=== PATIENT | female | born 1950 | race Caucasian/White ===

== ENCOUNTER 2019-12-10 09:52 | Emergency (ER) | payer MEDICARE, OTHER, SELFPAY ==
[2019-12-10 09:53] VITALS: BP 189/107; PULSE 66; RESP 13; TEMP 36.5; O2SAT 97; BMI 35.9
--- NOTE | 2019-12-10 09:57 | ED.VIS.GEN ---
History of Present Illness Chief Complaint: Neuro S/Sx Detail of Chief Complaint: Facial numbness and droop Informant: Patient Onset: Today Context: Sudden Onset Timing: Continuous Quality: Numbness, tingling, facial droop Location: Right side Current Severity: Moderate Maximum Severity: Moderate Worsened by: Nothing Relieved by: Nothing Associated Symptoms: Tearing because unable to close eyelids Narrative: Patient [age]-year-old woman who presents with facial numbness and tingling. She states not able to close her eye completely. She is tearing. She denies trouble with speech or swallowing. She denies any other symptoms. She does complain of a headache which she described as a sensation of a baseball cap on her head. It is not positional. There is no associated visual symptoms i.e. double vision, blurred vision or loss of vision. She denies ringing or ears or ear pain. She denies difficulty swallowing or change in voice. She denies problems with balance or coordination. Prior similar symptoms: Yes - Mittal's palsy Recent Illness/Hospitalization: No - Past Medical History (1) Mittal's palsy Status: Chronic (2) Hypertension Status: Chronic (3) Hypercholesterolemia Status: Chronic (4) Depression Status: Chronic Past Medical History - Allergies and Home Meds Allergies/Adverse Reactions: Allergies No Known Allergies Allergy (Verified 12/10/19 09:53) Primary Care Physician: Rose Vidales MD [Primary Care Provider] - Prior records reviewed: Yes Lives: Spouse/ Significant Other Smoking Status: Never smoker Alcohol: None Drugs: None Review of Systems General: Denies: Chills, Fever, Malaise, Subjective, Sweats Eyes: Denies: Visual changes - bilaterally, Blurred Vision - bilaterally, Diplopia ENT: Denies: Bilateral ear pain, Rhinorrhea, Sore throat Cardiovascular: Denies: Chest pain, Palpitations Respiratory: Denies: Dyspnea, Cough, Dyspnea on exertion Gastrointestinal: Denies: Nausea, Vomiting, Diarrhea Musculoskeletal: Denies: Myalgias, Arthralgias, Neck pain, Back pain, Swelling, Extremity Pain, -, - Skin: Denies: Rash, Wounds Neurological: Reports: Headache, Weakness, Parasthesia, Numbness, - Psych: Reports: Depression Endocrine: Denies: Polyuria, Polydipsia Hematologic: Denies: Easy bruising, Easy bleeding Physical Exam Vital Signs/Narrative: Vital Signs Temp Pulse Resp BP Pulse Ox 12/10/19 09:53 97.7 F L 66 13 189/107 H 97 Inital Vital Signs reviewed: Yes General: Well nourished, Well developed, Obese Head: Normocephalic, Atraumatic, - - She has facial droop on the right side. Unable to close her eyelids. Unable to raise her eyebrows or furl her forehead. There is decreased sensation on the right side compared to left.. Negative for: Trauma, Tenderness Eyes: Perrl, EOMI. Negative for: Pale conjunctiva, Scleral icterus ENT: Moist mucous membranes, No rhinorrhea, TM's clear - There are no lesions in the auditory canal. Neck: Supple, Nontender, No lymphadenopathy, No JVD Cardiovascular: Regular rate, Regular rhythm, No murmurs, Normal S1, Normal S2 Respiratory: No distress, CTA bilaterally, Chest nontender Abdomen: Soft, Nontender, Nondistended, Normal bowel sounds Back: Nontender, Normal Inspection Extremities: Nontender, No edema Skin: Normal color, No rash Neurological: Alert, Oriented x3, Cranial nerves II-XII grossly intact, Normal Strength, Normal Sensation, Normal DTR, Normal Gait, - - Cerebellar testing is normal. NIH is a 2 for facial numbness and facial palsy. Patient's findings are consistent with Mittal's palsy. Psychological: Normal affect, Normal Mood Diagnostic/Tx/Re-eval - Medical Decision Making Was rushed back by triage nurse because of concern for stroke. Patient's history and physical exam is consistent with Mittal's palsy. She was treated with a burst of prednisone. ED Disposition - Plan for ED Patient: Disposition: Home or Assisted Living Diagnosis: Mittal's palsy Instructions: Mittal's Palsy Prescriptions: Prednisone [Deltasone] 40 mg PO DAILY #10 tab Prescription Printed Erythromycin Ophthalmic 1 applic RIGHT EYE TID #1 tube Prescription Printed Referrals: Rose Vidales MD [Primary Care Provider] - 1 Week if not improving Additional Instructions: 1. Instill 1 to 2 drops of artificial tear right eye every 1 hour while awake. 2. Instill fine ribbon of ointment at bedtime and tape right eye shot.
[2019-12-10 10:01] VITALS: BP 161/96; PULSE 61; RESP 16; O2SAT 94; BMI 34.7
[2019-12-10 10:21] VITALS: BP 154/91; RESP 16
--- NOTE | 2019-12-10 10:22 | ED.RN ---
REVIEWED D/C INSTRUCTIONS, FOLLOW UP CARE, PRESCRIPTIONS, AND S/S THAT WOULD WARRANT RETURN TO THE ED WITH PT. PT VERBALIZED AN UNDERSTANDING AND DENIES FURTHER QUESTIONS FOR THIS RN. PT SKIN P/W/D, RESP EVEN AND UNLABORED, NO DISTRESS NOTED. PT AMBULATED OUT OF ED, GAIT STEADY.
== END 2019-12-10 10:23 | disposition home or self-care (01) ==
PROVIDERS: Emergency Provider Emergency Medicine; PCP Internal Medicine
DX: G51.0 Bell's palsy (principal); R51 Headache; I10 Essential (primary) hypertension; E78.00 Pure hypercholesterolemia, unspecified; F32.9 Major depressive disorder, single episode, unspecified; E66.9 Obesity, unspecified; Z79.899 Other long term (current) drug therapy
CPT/HCPCS: 99282

== ENCOUNTER 2022-10-15 21:37 | Emergency (ER) | payer MEDICARE, OTHER, SELFPAY ==
[2022-10-15 21:39] VITALS: BP 127/82; PULSE 88; RESP 17; TEMP 36.9; O2SAT 89; BMI 32.8
[2022-10-15 21:45] VITALS: O2SAT 93
--- NOTE | 2022-10-15 22:10 | EDS_ITS ---
HPI History of Present Illness Chief Complaint: Head Injury Narrative Narrative: Patient is a 9-year-old female with past medical history of hypertension hyperlipidemia and depression. She states that she was walking through her house roughly 1 hour ago after she was sitting down watching TV and her legs just gave out on her and she fell initially hitting her buttocks and then rolling backwards and striking the back of her head on the drywall. She states there was no loss of consciousness and she denies any history of bleeding disorder or blood thinner use. She states since that time there is been no headache change in vision light sensitivity or nausea or vomiting. She reports that a friend is a nurse and came over after the fall and recommended she come to the hospital to be checked out and secondary to this comes in for evaluation. Otherwise she denies any chest pain palpitations or shortness of breath and has no other complaints PFSH PFS Home Medications bupropion HCl 300 mg 24 hr tablet, extended release 300 mg PO DAILY 12/10/19 [History Last Taken Unknown] calcium carbonate-vitamin D3 600 mg-125 unit tablet 1 ea PO DAILY 12/10/19 [History Last Taken Unknown] cholecalciferol (vitamin D3) 25 mcg (1,000 unit) tablet 1,000 unit PO DAILY 12/10/19 [History Last Taken Unknown] donepezil 10 mg tablet 10 mg PO QHS 12/10/19 [History Last Taken Unknown] erythromycin 5 mg/gram (0.5 %) eye ointment 1 applic RIGHT EYE TID #1 tube 12/10/19 [Rx Last Taken Unknown] hydrochlorothiazide 12.5 mg capsule 12.5 mg PO DAILY 12/10/19 [History Last Taken Unknown] losartan 50 mg tablet 50 mg PO DAILY 12/10/19 [History Last Taken Unknown] lysine 500 mg tablet 500 mg PO DAILY 12/10/19 [History Last Taken Unknown] metoprolol succinate 25 mg tablet,extended release 24 hr 25 mg PO DAILY 12/10/19 [History Last Taken Unknown] multivitamin with minerals 1 ea PO DAILY 12/10/19 [History Last Taken Unknown] omeprazole 20 mg capsule,delayed release 20 mg PO DAILY 12/10/19 [History Last Taken Unknown] potassium chloride 20 mEq oral packet 20 meq PO DAILY 12/10/19 [History Last Taken Unknown] pravastatin 40 mg tablet 40 mg PO QHS 03/03/20 [History Last Taken Unknown] prednisone 20 mg tablet 40 mg PO DAILY #10 tabs 12/10/19 [Rx Last Taken Unknown] Allergy/AdvReac Type Severity Reaction Status Date / Time No Known Allergies Allergy Verified 10/15/22 21:39 Social History Smoking Status: Never smoker ROS ROS ED Constitutional Constitutional ED: Denies chills or fever(s) Eyes Eyes: Denies change in vision ENT ENT ED: Denies sore throat Cardiovascular Cardiovascular: Reports other Details: Negative syncope ; Denies chest pain or palpitations Respiratory/Chest Respiratory/Chest: Denies cough or dyspnea Gastrointestinal Gastrointestinal: Denies abdominal pain, diarrhea, nausea or vomiting Genitourinary Genitourinary ED: Denies dysuria Musculoskeletal Musculoskeletal: Denies back pain, myalgias or neck pain Integumentary Denies rash Neurologic Neurologic: Denies headache(s) or paresthesias Hematologic/Lymphatic Hematologic/Lymphatic: Denies easy bleeding or easy bruising EXAM Physical Exam Const Vital Signs: 10/15/22 21:39 10/15/22 21:45 10/15/22 21:46 Temperature 98.5 F Temperature Source Temporal Pulse Rate 88 Respiratory Rate 17 Respiratory Effort Normal Respiratory Pattern Normal Blood Pressure 127/82 H Blood Pressure Mean 97 Pulse Ox 89 93 Oxygen Delivery Method Room Air Nasal Cannula Oxygen Flow Rate (L/min) 2 Positive well nourished and well developed General Appearance ED: well developed HEENT Reports dry mucous membranes HEENT Narrative: No signs of depressed or basilar skull fracture no scalp hematoma noted Mouth ED: Yes dry mucous membranes Mouth: dry mucous membranes Eyes PERRL and EOMs intact bilaterally Neck supple Neck Narrative: No bony deformity or step-off of the cervical spine no midline pain with palpation Chest Wall palpation of chest normal Resp normal respiratory effort and clear to auscultation bilaterally Cardio regular rate and regular rhythm GI normal to inspection, nondistended, normoactive bowel sounds, non-tender and non-distended Auscultation: normoactive bowel sounds Palpation: soft Back/Spine Back/Spine Narrative: No bony deformity or step-off of the thoracic or lumbar spine no midline pain with palpation Extremity normal to inspection Extremity Narrative: Pelvis is stable there is no shortening or external rotation of either lower extremity. Patient can lift both arms and legs without difficulty Neuro oriented x3 and CN's II-XII intact bilaterally Sensorium / Orientation: alert Psych mental status grossly normal Skin no rashes or lesions noted Skin Narrative: No abrasions or ecchymosis noted Skin turgor is increased MDM MDM MDM Narrative Medical decision making narrative: Patient presented to the ER awake and alert without headache light sensitivity change in vision nausea or vomiting. She reported a mechanical fall and the fact that her legs gave out and she does not have any type of palpitations or syncope prior to the event. Her head trauma is low mechanism of injury she does not have a scalp hematoma and she is not on blood thinners or has a history of bleeding disorder. Therefore I felt there is no need for a head CT. Patient and family were informed of my reasoning and they agree with this about foregoing head CT. Family had concern for dehydration and physical exam does suggest this so basic labs were obtained. Her creatinine is slightly elevated at 1.09 but the remainder of her labs revealed no clinically significant findings. Patient was given 1 L of fluid to help replace this and afterwards was able to ambulate in the ER with a steady gait and is therefore safe for discharge. Lab Data Attestation: I reviewed the patient's lab results. Labs: Laboratory Results - last 24 hr 10/15/22 10/15/22 21:23 21:23 WBC 10.9 RBC 4.09 L Hgb 12.5 Hct 37.7 MCV 92.2 MCH 30.6 MCHC 33.2 RDW Std Deviation 44.8 H RDW Coeff of Marcio 13.2 Plt Count 373 MPV 9.9 Immature Gran % (Auto) 0.400 Neut % (Auto) 63.5 Lymph % (Auto) 29.4 [place] % (Auto) 5.8 Eos % (Auto) 0.7 Baso % (Auto) 0.2 Absolute Neuts (auto) 7.0 Absolute Lymphs (auto) 3.22 Nucleated RBC % 0 Sodium 137 Potassium 3.7 Chloride 100 Carbon Dioxide 29.0 Anion Gap 8 BUN 13 Creatinine 1.09 H Estim Creat Clear Calc 37.98 Est GFR (MDRD) Af Amer 64 Est GFR (MDRD) Non-Af 53 L BUN/Creatinine Ratio 11.9 Glucose 117 H Calcium 9.4 Magnesium 1.9 Discharge Plan Triage Chief Complaint: Head Injury ED Provider: Sanjay Rivera Dx/Rx/DC Orders Clinical Impression: Closed head injury, Dehydration, mild, Accidental fall Instructions: ED Dehydration (Adult), ED Head Injury (Adult) Prescriptions: No Action losartan 50 MG tablet 50 mg PO DAILY pravastatin 40 MG tablet 40 mg PO QHS donepezil 10 MG tablet 10 mg PO QHS potassium chloride 20 MEQ packet 20 meq PO DAILY hydrochlorothiazide 12.5 MG capsule 12.5 mg PO DAILY omeprazole 20 MG capsule 20 mg PO DAILY metoprolol succinate 25 MG tablet extended release 24 hr 25 mg PO DAILY multivitamin with minerals 1 EACH tablet 1 ea PO DAILY lysine 500 MG tablet 500 mg PO DAILY bupropion HCl 300 MG tablet extended release 24 hr 300 mg PO DAILY calcium carbonate-vitamin D3 1 EACH tablet 1 ea PO DAILY cholecalciferol (vitamin D3) 1,000 UNIT tablet 1,000 unit PO DAILY erythromycin 1 GM ointment 1 applic RIGHT EYE TID Qty: 1 0RF Rx Instructions: prednisone 20 MG tablet 40 mg PO DAILY Qty: 10 0RF Rx Instructions: With food Primary Care Provider: Rose Vidales Referrals: Rose Vidales MD [Primary Care Provider] - Activity Restrictions/Additional Instructions: Please keep yourself well-hydrated continue all your medications as previously directed and return to the ER should you have any further concerns Disposition Disposition: Home, Self Care
[2022-10-15 22:24] LABS: Absolute Lymphocyte Count 3.22 X10^3/uL (0.83-4.51); Basophil# 0.02 X10^3/uL; Basophil% 0.2 % (0-1); Eosinophil# 0.08 X10^3/uL; Eosinophils% 0.7 % (0-5); Hematocrit 37.7 % (37-47); Hemoglobin 12.5 g/dL (12.0-15.0); Lymphocyte # 3.22 X10^3/ul (0.83-4.51); Lymphocyte % 29.4 % (19-41); Mean Corp Hgb Conc 33.2 g/dL (32-36); Mean Corpuscular Hgb 30.6 pg (27.0-32.0); Mean Corpuscular Volume 92.2 fL (81-99); Mean Platelet Vol. 9.9 fl (6.2-12.0); Monocyte# 0.63 X10^3/uL; Monocyte% 5.8 % (0-10); NRBC Flagged by Analyzer 0 % (0-5); Neutrophil # 6.95 X10^3/uL (2.7-7.7); Neutrophil % 63.5 % (47-70); Platelet Count 373 K/mm3 (150-450); RBC Distribution Width CV 13.2 % (11.6-14.6); RBC Distribution Width SD 44.8 fl (35.1-43.9); Red Blood Count 4.09 M/mm3 (4.2-5.4); White Blood Count 10.9 K/mm3 (4.4-11.0)
[2022-10-15] MEDS: 0.9% Normal Saline 1,000 ML 999 ML IV (22:25)
[2022-10-15 22:45] LABS: Anion Gap 8 (5-15); BUN 13 mg/dL (7-18); BUN/Creat Ratio 11.9 RATIO (10-20); Calcium,Total 9.4 mg/dL (8.5-10.1); Chloride 100 mmol/L (98-107); Creatinine, Serum 1.09 mg/dL (0.55-1.02); EST Glomerular Filtration Rate 53 mL/min (>60); Est Glom Filt Rate - Afr Amer 64 mL/min (>60); Estimated Creatinine Clearance 37.98 ml/min; Glucose 117 mg/dL (74-106); Magnesium 1.9 mg/dL (1.6-2.6); Potassium 3.7 mmol/L (3.5-5.1); Sodium Level 137 mmol/L (136-145)
[2022-10-16 00:07] VITALS: BP 118/83; PULSE 76; RESP 16; O2SAT 98
== END 2022-10-16 00:08 | disposition home or self-care (01) ==
PROVIDERS: Emergency Provider Emergency Medicine; PCP Internal Medicine; Visit Provider Emergency Medicine
DX: S00.03XA Contusion of scalp, initial encounter (principal); W01.198A Fall on same level from slipping, tripping and stumbling with subsequent striking against other object, initial encounter; Y93.01 Activity, walking, marching and hiking; Y92.019 Unspecified place in single-family (private) house as the place of occurrence of the external cause; E86.0 Dehydration; I10 Essential (primary) hypertension; E78.5 Hyperlipidemia, unspecified; F32.A Depression, unspecified; Z79.899 Other long term (current) drug therapy; Z79.52 Long term (current) use of systemic steroids
CPT/HCPCS: 80048; 83735; 85025; 96360; 96361; 99285; J7030

== ENCOUNTER → 2023-08-23 | Outpatient (CLI) | payer MEDICARE, OTHER, SELFPAY ==
[2023-08-23 17:35] LABS: Absolute Lymphocyte Count 2.58 X10^3/uL (0.83-4.51); Absolute Neutrophil Count 4.1 X10^3/uL (2.0-7.7); Basophil# 0.02 X10^3/uL; Basophil% 0.3 % (0-1); Eosinophil# 0.12 X10^3/uL; Eosinophils% 1.6 % (0-5); Hematocrit 37.5 % (37-47); Lymphocyte # 2.58 X10^3/ul (0.83-4.51); Lymphocyte % 34.9 % (19-41); Mean Corpuscular Hgb 30.7 pg (27.0-32.0); Mean Corpuscular Volume 95.9 fL (81-99); Mean Platelet Vol. 9.8 fl (6.2-12.0); Monocyte# 0.55 X10^3/uL; Monocyte% 7.4 % (0-10); NRBC Flagged by Analyzer 0 % (0-5); Neutrophil # 4.11 X10^3/uL (2.7-7.7); Neutrophil % 55.5 % (47-70); Platelet Count 347 K/mm3 (150-450); RBC Distribution Width CV 13.2 % (11.6-14.6); RBC Distribution Width SD 46.6 fl (35.1-43.9); Red Blood Count 3.91 M/mm3 (4.2-5.4); White Blood Count 7.4 K/mm3 (4.4-11.0)
[2023-08-23 18:05] LABS: Color, Urine Yellow (Yellow); Glucose, Dipstick Normal (Normal); Ketone-Dipstick 50 mg/dl (Negative); Leukocyte Esterase-Dipstick 100 /ul (Negative); Nitrite-Dipstick Negative (Negative); Occult Blood-Urine Negative /ul (Negative); Protein-Dipstick Negative (Negative); Specific Gravity, Urine 1.015 (1.002-1.030); Urine Bilirubin Dipstick Negative (Negative); Urine Clarity Clear (Clear); Urine Urobilinogen Normal (Normal)
[2023-08-23 18:21] LABS: ALB/GLOB Ratio 1.2 RATIO (0.9-2.4); AST(SGOT) 17 U/L (15-37); Alanine Aminotransfer ALT/SGPT 15 U/L (13-56); Albumin, Serum 3.9 g/dL (3.2-5.0); Alkaline Phosphatase 53 U/L (45-117); Anion Gap 9 (5-15); BUN 17 mg/dL (7-18); BUN/Creat Ratio 19.3 RATIO (10-20); Calcium,Total 9.2 mg/dL (8.5-10.1); Chloride 105 mmol/L (98-107); Creatinine, Serum 0.88 mg/dL (0.55-1.02); EST Glomerular Filtration Rate 67 mL/min (>60); Est Glom Filt Rate - Afr Amer 81 mL/min (>60); Globulin 3.3 g/dL (2.2-4.2); Glucose 80 mg/dL (74-106); Potassium 3.5 mmol/L (3.5-5.1); Protein, Total 7.2 g/dL (6.4-8.2); Sodium Level 140 mmol/L (136-145)
[2023-08-28 12:08] LABS: Anti-Nuclear Antibody Test Positive (.); Anti-dsDNA Ab <1 IU/mL (0-9)
== END | disposition home or self-care (01) ==
LOC: MTLAB 15:14
PROVIDERS: PCP Internal Medicine; Referring Provider Dermatology; Visit Provider Dermatology
DX: C44.91 Basal cell carcinoma of skin, unspecified (principal); L57.8 Other skin changes due to chronic exposure to nonionizing radiation; L30.8 Other specified dermatitis; X32.XXXA Exposure to sunlight, initial encounter
CPT/HCPCS: 36415; 80053; 81001; 81002; 85025; 86038; 86225

== ENCOUNTER 2024-07-22 14:14 | Emergency (ER) | payer MEDICARE, OTHER, SELFPAY ==
[2024-07-22 14:14] VITALS: BP 179/102; PULSE 64; RESP 16; O2SAT 96
[2024-07-22 14:17] VITALS: TEMP 36.3; O2SAT 99; BMI 30.1
--- NOTE | 2024-07-22 14:21 | RAD_ITS ---
STUDY: X-RAY - PELVIS REASON FOR EXAM: Female, 74 years old. Headache after fall TECHNIQUE: One view of the pelvis was obtained. COMPARISON: None. FINDINGS: There is a non-specific bowel gas pattern. Normal visualized soft tissue structures. There is diffuse demineralization of the osseous structures. There is narrowing with cortical sclerosis and osteophyte formation of the sacroiliac joint consistent with degenerative osteoarthritic changes. Normal visualized bilateral superior and inferior pubic rami. Normal pubic symphysis. Normal ischial tuberosities. Normal visualized right femoral head. Normal right acetabulum. There is mild articular joint space narrowing of the right hip. Normal visualized left femoral head. Normal left acetabulum. There is mild articular joint space narrowing of the left hip. RAD/Pelvis 1 or 2 Views IMPRESSION: Age consistent degenerative changes, no acute findings. However, hip and pelvic fractures in patients of this age can be subtle, if there is strong clinical suspicion of a fracture, recommend further evaluation with CT Electronically Signed: Fazal Mueller MD at 15:33 EDT ,
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
[2024-07-22] MEDS: Ondansetron 4 MG/2 ML Vial IV (14:27)
[2024-07-22] MEDS: Lidocaine 1% /Epi 1:100 (20ml) 20 ML Vial 5 ML INFILT (14:28)
--- NOTE | 2024-07-22 14:45 | CT_ITS ---
STUDY: CT BRAIN WITHOUT CONTRAST REASON FOR EXAM: Female, 74 years old. Acute pain after trauma RADIATION DOSAGE (If Supplied By Facility): CTDIvol = ( 44.99 ) mGy, DLP = ( 796.11 ) mGycm TECHNIQUE: Transaxial CT imaging of the brain was performed without administration of intravenous contrast material. Individualized dose optimization techniques were used for this CT. COMPARISON: No relevant priors. FINDINGS: There is an acute, nondisplaced left occipital skull fracture with associated soft tissue swelling and subcutaneous emphysema. There are multiple areas of hyperdensity in the brain consistent with acute hemorrhages. There is a 0.9 cm left subdural hematoma along the left temporal/parietal region, there is a right temporal lobe subdural hematoma measuring 5 mm, there is also evidence of hemorrhage within the right sylvian fissure and a contrecoup 1.1 cm parenchymal hematoma in the right frontal lobe which is opposite the skull fracture. There are age consistent atrophic periventricular deep white matter changes, Normal visualized paranasal sinuses. CT/Brain/Head without Contrast IMPRESSION: Nondisplaced left occipital skull fracture with associated soft tissue swelling and subcutaneous emphysema There are acute subdural hematomas along the left temporal/parietal region, right temporal region and right frontal lobe. Thicknesses are 0.9 cm on the left side, 0.5 cm on the right temporal hematoma and 0.3 cm in the right frontal There is a 1.1 cm parenchymal hemorrhage contracoup to the skull fracture At the time of this scan there is no significant edema, midline shift or mass effect ventricles and basilar cisterns are of normal caliber for age. Age consistent senescent changes. N.B. : The above Results were Read Back by Fazal Mueller MD to Jim Johnston MD, and understanding confirmed on 07/22/2024 15:03:23 (ET). Electronically Signed: Fazal Mueller MD at 15:06 EDT ,
--- NOTE | 2024-07-22 14:45 | RAD_ITS ---
STUDY: X-RAY CHEST REASON FOR EXAM: Female, 74 years old. Chest pain after fall TECHNIQUE: Single AP portable view of the chest. COMPARISON: None. FINDINGS: EKG leads overlie the chest The lungs are clear and expanded. There is no demonstrated pleural abnormality. Normal size heart. There is mediastinal widening likely due to a tortuous ascending aorta but there are also subtle air bronchograms noted in this opacification and this could represent atelectasis. There are no previous studies available for comparison. Normal visualized pulmonary arteries. Normal visualized aortic arch and descending thoracic aorta. Normal visualized thoracic spine. Normal visualized ribs, clavicles, and shoulders. There is no demonstrated abnormality of the visualized soft tissue structures of the upper abdomen. RAD/Chest 1 View IMPRESSION: No acute pulmonary process Widening of the superior mediastinum likely due to a tortuous ectatic aorta but atelectatic changes along the right suprahilar and perihilar region cannot be excluded Electronically Signed: Fazal Mueller MD at 15:35 EDT ,
--- NOTE | 2024-07-22 14:45 | CT_ITS ---
STUDY: CT CERVICAL SPINE WITHOUT CONTRAST REASON FOR EXAM: Female, 74 years old. Headache and neck pain after trauma RADIATION DOSAGE (If Supplied By Facility): CTDIvol = ( 23.88 ) mGy, DLP = ( 481.51 ) mGycm TECHNIQUE: High resolution transaxial imaging was performed without contrast material. Sagittal and coronal images were reconstructed. Individualized dose optimization techniques were used for this CT. COMPARISON: None FINDINGS: Normal craniovertebral junction. Normal anterior atlantoaxial articulation. Normal odontoid process. There is a left occipital skull fracture with fluid noted in the mastoid air cells and associated soft tissue swelling and subcutaneous emphysema. There is straightening of the normal cervical lordosis. Normal vertebral bodies and posterior osseous elements. C2-3: Normal endplates. Normal disc height and morphology. Normal central canal and intervertebral neuroforamina. C3-4: Normal endplates. Normal disc height and morphology. Normal central canal and intervertebral neuroforamina. C4-5: Normal endplates. Normal disc height and morphology. Normal central canal and intervertebral neuroforamina. C5-6: Disc space narrowing with uncovertebral spurs. No central canal narrowing, mild left foraminal narrowing due to facet joint hypertrophy. The right foramen is widely patent C6-7: Normal endplates. Disc space narrowing.. Normal central canal and intervertebral neuroforamina. C7-T1: Normal endplates. Disc space narrowing.. Normal central canal and intervertebral neuroforamina. Normal visualized soft tissue structures. CT/Spine Cervical without Contras IMPRESSION: Age consistent degenerative changes in the cervical spine without acute fracture or suspicious osseous lesion Left occipital skull fracture with associated soft tissue swelling and subcutaneous emphysema there is also evidence of fluid within the left mastoid air cells Electronically Signed: Fzaal Mueller MD at 15:45 EDT ,
[2024-07-22 14:51] LABS: Absolute Lymphocyte Count 3.96 X10^3/uL (0.83-4.51); Absolute Neutrophil Count 4.4 X10^3/uL (2.0-7.7); Basophil# 0.03 X10^3/uL; Basophil% 0.3 % (0-1); Eosinophil# 0.15 X10^3/uL; Eosinophils% 1.6 % (0-5); Hematocrit 35.8 % (37-47); Hemoglobin 11.6 g/dL (12.0-15.0); Lymphocyte # 3.96 X10^3/ul (0.83-4.51); Lymphocyte % 43.5 % (19-41); Mean Corp Hgb Conc 32.4 g/dL (32-36); Mean Corpuscular Hgb 30.2 pg (27.0-32.0); Mean Corpuscular Volume 93.2 fL (81-99); Mean Platelet Vol. 9.4 fl (6.2-12.0); Monocyte# 0.52 X10^3/uL; Monocyte% 5.7 % (0-10); NRBC Flagged by Analyzer 0 % (0-5); Neutrophil % 48.5 % (47-70); Platelet Count 353 K/mm3 (150-450); RBC Distribution Width CV 13.2 % (11.6-14.6); RBC Distribution Width SD 45.3 fl (35.1-43.9); Red Blood Count 3.84 M/mm3 (4.2-5.4); White Blood Count 9.1 K/mm3 (4.4-11.0)
[2024-07-22 14:57] LABS: International Normalized Ratio 1.1; Prothrombin Time (Protime)PT. 13.7 SECONDS (11.7-14.9)
[2024-07-22 14:58] LABS: Partial Thromboplast Time 25.3 Seconds (24.1-36.2)
[2024-07-22 15:08] LABS: Anion Gap 9 (5-15); BUN 23 mg/dL (7-18); BUN/Creat Ratio 24.6 RATIO (10-20); Calcium,Total 9.3 mg/dL (8.5-10.1); Chloride 106 mmol/L (98-107); Creatinine, Serum 0.94 mg/dL (0.55-1.02); EST Glomerular Filtration Rate 63 mL/min (>60); Est Glom Filt Rate - Afr Amer 76 mL/min (>60); Estimated Creatinine Clearance 51.22 ml/min; Glucose 144 mg/dL (74-106); Potassium 3.2 mmol/L (3.5-5.1); Sodium Level 139 mmol/L (136-145)
[2024-07-22] MEDS: Metoclopramide 10 MG/2 ML Vial 2.5 MG IV (15:17)
[2024-07-22 16:14] VITALS: BP 178/93; PULSE 48; RESP 16; O2SAT 98
[2024-07-22 16:23] VITALS: BP 176/93; PULSE 49; RESP 16; O2SAT 98; BMI 30.1
[2024-07-22 16:31] VITALS: BP 178/93; PULSE 48; RESP 16; TEMP 36.5; O2SAT 98
== END 2024-07-22 16:40 | disposition short-term general hospital (02) ==
PROVIDERS: Emergency Provider Emergency Medicine; PCP Internal Medicine; Referring Provider Emergency Medicine; Visit Provider Emergency Medicine
DX: S06.5X9A Traumatic subdural hemorrhage with loss of consciousness of unspecified duration, initial encounter (principal); S06.349A Traumatic hemorrhage of right cerebrum with loss of consciousness of unspecified duration, initial encounter; S06.359A Traumatic hemorrhage of left cerebrum with loss of consciousness of unspecified duration, initial encounter; S01.01XA Laceration without foreign body of scalp, initial encounter; W10.8XXA Fall (on) (from) other stairs and steps, initial encounter; Y93.89 Activity, other specified; Y99.8 Other external cause status
CPT/HCPCS: 12002; 70450; 71045; 72125; 72170; 80048; 85025; 85610; 85730; 96374; 96375; 99284; A4216; J2405

== ENCOUNTER 2024-09-04 16:07 | Emergency (ER) | payer MEDICARE, OTHER, SELFPAY ==
[2024-09-04 16:08] VITALS: BP 162/100; PULSE 102; RESP 16; TEMP 37.1; O2SAT 98; BMI 28.9
--- NOTE | 2024-09-04 16:31 | EX.ED.DYSGE1 ---
HPI History of Present Illness Chief Complaint: Nausea/Vomiting Informant: patient and spouse/S.O. Narrative Narrative: Sent over from [facility]. Presents with significant other increasing nausea with vomiting today. No hematemesis. Intermittent nausea for last 2 weeks. 6 weeks ago was in the ED mechanical fall nondepressed cold fractures with subdural hematoma. She was life flighted to [facility] Per spouse was in the ICU for 3 days, no surgical intervention. She has albertina for scalp laceration. She is kept on the medical floor due to hyponatremia with a sodium of 120 she was discharged with a sodium of 127. Her blood pressure medicines were adjusted including removing her hydrochlorothiazide. 10 days ago saw her PCP as she is on sodium tabs reported her sodium is 140. She she was told to stop the sodium tab and restarted the hydrochlorothiazide. Reports pain a lot more because she is drinking a lot more. Denies any abdominal pain or any pain anywhere. No headaches. [facility] Medical History (Updated 09/04/24 @ 18:[address] Imtiaz Edge DO) Hx of fracture of skull Brain bleed Home Medications ?Medication ?Instructions ?Recorded ?Last Taken ?Type bupropion HCl 300 mg 24 hr tablet, 300 mg PO DAILY 12/10/19 Unknown History extended release calcium carbonate-vitamin D3 600 1 ea PO DAILY 12/10/19 Unknown History mg-125 unit tablet cholecalciferol (vitamin D3) 25 1,000 unit PO DAILY 12/10/19 Unknown History mcg (1,000 unit) tablet donepezil 10 mg tablet 10 mg PO QHS 12/10/19 Unknown History hydrochlorothiazide 12.5 mg capsule 12.5 mg PO DAILY 12/10/19 07/22/24 History losartan 50 mg tablet 50 mg PO DAILY 12/10/19 07/22/24 History lysine 500 mg tablet 500 mg PO DAILY 12/10/19 07/22/24 History metoprolol succinate 25 mg 25 mg PO DAILY 12/10/19 07/22/24 History tablet,extended release 24 hr multivitamin with minerals 1 ea PO DAILY 12/10/19 Unknown History omeprazole 20 mg capsule,delayed 20 mg PO DAILY 12/10/19 07/22/24 History release pravastatin 40 mg tablet 40 mg PO QHS 12/10/19 07/22/24 History fluoxetine 20 mg capsule 20 mg PO DAILY 07/22/24 07/22/24 History potassium chloride 20 mEq 20 meq PO DAILY 07/22/24 07/22/24 History tablet,extended release(part/cryst) trazodone 50 mg tablet 50 mg PO QHS 07/22/24 07/21/24 History nitrofurantoin 100 mg PO Q12 #10 CAPSULES 09/04/24 Unknown Rx monohydrate/macrocrystals 100 mg capsule ondansetron 4 mg disintegrating 4 mg PO Q8H PRN PRN Nausea #10 tabs 09/04/24 Unknown Rx tablet Allergy/AdvReac Type Severity Reaction Status Date / Time No Known Allergies Allergy Verified 09/04/24 16:08 Social History Smoking Status: Never smoker ROS ROS ED Constitutional Constitutional ED: Denies chills, fever(s) or sweats Eyes Eyes: Denies change in vision ENT ENT ED: Denies dysphagia or sore throat Cardiovascular Cardiovascular: Denies chest pain, leg edema, palpitations or racing heartbeat Respiratory/Chest Respiratory/Chest: Denies cough, dyspnea or dyspnea on exertion Gastrointestinal Gastrointestinal: Reports nausea and vomiting; Denies abdominal pain or diarrhea Genitourinary Genitourinary ED: Denies dysuria, hematuria or urinary frequency Musculoskeletal Musculoskeletal: Denies back pain, extremity pain or neck pain Integumentary Denies rash or wounds Neurologic Neurologic: Denies headache(s), paresthesias or weakness EXAM Physical Exam Const Vital Signs: 09/04/24 16:08 09/04/24 18:30 09/04/24 18:59 Temperature 98.7 F 98.6 F Temperature Source Oral Pulse Rate 102 H 72 72 Respiratory Rate 16 18 18 Blood Pressure 162/100 H 131/76 H 135/87 H Blood Pressure Mean 120 94 103 Pulse Ox 98 97 97 Oxygen Delivery Method Room Air Room Air Positive well nourished and well developed Constitutional Narrative: Nontoxic General Appearance ED: well developed and NAD HEENT HEENT Narrative: Mild dryness to the tongue normocephalic and atraumatic Eyes EOMs intact bilaterally and conjunctivae normal General Eye ED: Yes normal appearance of both eyes Neck no lymphadenopathy and supple General: Negative for tenderness Chest Wall Chest: Negative for tenderness Resp normal respiratory effort and normal air movement Effort and Inspection: symmetric chest movement; Negative for respiratory distress Cardio regular rate, regular rhythm and no murmurs Peripheral Pulses: pulses 2+ throughout GI normal to inspection, nondistended, normoactive bowel sounds and non-tender GI Narrative: Negative Bell's or McBurney's tenderness. Palpation: Negative for guarding or rebound tenderness present Back/Spine no CVA tenderness and no thoracic nor lumbar tenderness Extremity normal to inspection General Extremety ED: Negative for edema or tenderness General Extremity: Negative for edema Neuro oriented x3, CN's II-XII intact bilaterally and no sensory deficits noted Sensorium / Orientation: awake and alert Skin no rashes or lesions noted and no wounds MDM MDM MDM Narrative Medical decision making narrative: Interventions / MDM: Differential diagnosis: Urinary tract infection, nausea and vomiting no clinical bowel obstruction. Diagnosis considered but do not suspect: Electrolyte abnormalities however labs were normal. My EKG interpretation: N/A Imaging independently reviewed and interpreted by myself: N/A External documents reviewed: N/A Test considered but not ordered:N/A ED course: Alert and orient x 3, mild tremulous membranes. History of hyponatremia with increasing nausea and vomiting. Will check labs IV fluids Zofran ordered. With increasing urine frequency will check UA. 1850: Sodium normal at 137. Urine with signs of infection. Normal white count. Normal creatinine. Reevaluations tolerating oral fluids. Started on Macrobid. Meds to bed with antibiotics and antiemetics. Outpatient follow-up. Return precautions. All questions were answered. Re-evaluation: stable Disposition discussed with patient/family/significant other: Patient and significant other Case discussed with consulting clinician: N/A This note was generated with [employer] dictation software. It may contain incorrect words, spelling, and punctuation that were not noted in checking the note before signing. Lab Data Attestation: I reviewed the patient's lab results. Labs: Laboratory Results - last 24 hr 09/04/24 09/04/24 16:33 17:31 WBC 6.3 RBC 3.94 L Hgb 12.0 Hct 37.0 MCV 93.9 MCH 30.5 MCHC 32.4 RDW Std Deviation 46.8 H RDW Coeff of Marcio 13.6 Plt Count 434 MPV 8.9 Immature Gran % (Auto) 0.200 Neut % (Auto) 49.4 Lymph % (Auto) 37.7 [place] % (Auto) 9.4 Eos % (Auto) 2.7 Baso % (Auto) 0.6 Absolute Neuts (auto) 3.1 Absolute Lymphs (auto) 2.36 Nucleated RBC % 0 Sodium 138 Potassium 3.5 Chloride 105 Carbon Dioxide 26.0 Anion Gap 6 BUN 13 Creatinine 0.71 Estim Creat Clear Calc 58.93 Est GFR (MDRD) Af Amer 104 Est GFR (MDRD) Non-Af 86 BUN/Creatinine Ratio 18.3 Glucose 92 Calcium 9.5 Urine Color Yellow Urine Clarity Sl. Cloudy Urine pH 8.0 Ur Specific [place] 1.015 Urine Protein Negative Urine Glucose (UA) Normal Urine Ketones Negative Urine Occult Blood 25 H Urine Nitrite Negative Urine Bilirubin Negative Urine Urobilinogen Normal Ur Leukocyte Esterase 500 H Urine RBC 0-5 SEEN Urine WBC 10-25 SEEN Ur Squamous Epith Cells 0-5 SEEN Ur Transition Epith Cell 0-5 SEEN Ur Renal Epithelial Cell 0-5 SEEN Urine Bacteria 0 SEEN Urine Mucus 0 SEEN Discharge Plan Triage Chief Complaint: Nausea/Vomiting ED Provider: Imtiaz Edge Dx/Rx/DC Orders Clinical Impression: Nausea & vomiting, Acute UTI Instructions: Urinary Tract Infections in Women, ED Vomiting (Adult) Prescriptions: New ondansetron 4 mg tablet,disintegrating 4 mg PO Q8H PRN PRN (Reason: Nausea) Qty: 10 0RF nitrofurantoin monohyd/m-cryst 100 mg capsule 100 mg PO Q12 Qty: 10 0RF No Action losartan 50 MG tablet 50 mg PO DAILY pravastatin 40 MG tablet 40 mg PO QHS donepezil 10 MG tablet 10 mg PO QHS hydrochlorothiazide 12.5 MG capsule 12.5 mg PO DAILY omeprazole 20 MG capsule 20 mg PO DAILY metoprolol succinate 25 MG tablet extended release 24 hr 25 mg PO DAILY multivitamin with minerals 1 EACH tablet 1 ea PO DAILY lysine 500 MG tablet 500 mg PO DAILY bupropion HCl 300 MG tablet extended release 24 hr 300 mg PO DAILY calcium carbonate-vitamin D3 1 EACH tablet 1 ea PO DAILY cholecalciferol (vitamin D3) 1,000 UNIT tablet 1,000 unit PO DAILY trazodone 50 mg tablet 50 mg PO QHS potassium chloride 20 mEq tablet,ER particles/crystals 20 meq PO DAILY fluoxetine 20 mg capsule 20 mg PO DAILY Primary Care Provider: Rose Vidales Referrals: Rose Vidales MD [Primary Care Provider] - 5-7 Days Activity Restrictions/Additional Instructions: Labs normal sodium today 137. Urine with signs of infection. Normal kidney function normal white count. Take and finish antibiotic as prescribed. Use nausea medicine as needed. Continue oral fluids. Follow-up your doctor. If You develop worsening symptoms, return to ED for reevaluation. Print Language: Hungarian Disposition Disposition: Home, Self Care Discharge Date/Time: 09/04/24 19:12
[2024-09-04] MEDS: Ondansetron 4 MG/2 ML Vial IV (16:38)
[2024-09-04] MEDS: 0.9% Normal Saline (1000mL) 1,000 ML 1000 ML IV (16:38)
[2024-09-04 16:45] LABS: Absolute Lymphocyte Count 2.36 X10^3/uL (0.83-4.51); Absolute Neutrophil Count 3.1 X10^3/uL (2.0-7.7); Basophil# 0.04 X10^3/uL; Basophil% 0.6 % (0-1); Eosinophil# 0.17 X10^3/uL; Eosinophils% 2.7 % (0-5); Lymphocyte # 2.36 X10^3/ul (0.83-4.51); Lymphocyte % 37.7 % (19-41); Mean Corp Hgb Conc 32.4 g/dL (32-36); Mean Corpuscular Hgb 30.5 pg (27.0-32.0); Mean Corpuscular Volume 93.9 fL (81-99); Mean Platelet Vol. 8.9 fl (6.2-12.0); Monocyte# 0.59 X10^3/uL; Monocyte% 9.4 % (0-10); NRBC Flagged by Analyzer 0 % (0-5); Neutrophil # 3.09 X10^3/uL (2.7-7.7); Neutrophil % 49.4 % (47-70); Platelet Count 434 K/mm3 (150-450); RBC Distribution Width CV 13.6 % (11.6-14.6); RBC Distribution Width SD 46.8 fl (35.1-43.9); Red Blood Count 3.94 M/mm3 (4.2-5.4); White Blood Count 6.3 K/mm3 (4.4-11.0)
[2024-09-04 17:26] LABS: Anion Gap 6 (5-15); BUN 13 mg/dL (7-18); BUN/Creat Ratio 18.3 RATIO (10-20); Calcium,Total 9.5 mg/dL (8.5-10.1); Chloride 105 mmol/L (98-107); Creatinine, Serum 0.71 mg/dL (0.55-1.02); EST Glomerular Filtration Rate 86 mL/min (>60); Est Glom Filt Rate - Afr Amer 104 mL/min (>60); Estimated Creatinine Clearance 58.93 ml/min; Glucose 92 mg/dL (74-106); Potassium 3.5 mmol/L (3.5-5.1); Sodium Level 138 mmol/L (136-145)
[2024-09-04 17:35] LABS: Bacteria 0 SEEN /hpf (None Seen); Mucous, Urine 0 SEEN /hpf (<or=2+)
[2024-09-04 18:03] LABS: Color, Urine Yellow (Yellow); Glucose, Dipstick Normal (Normal); Ketone-Dipstick Negative (Negative); Leukocyte Esterase-Dipstick 500 /ul (Negative); Nitrite-Dipstick Negative (Negative); Occult Blood-Urine 25 /ul (Negative); Protein-Dipstick Negative (Negative); Specific Gravity, Urine 1.015 (1.002-1.030); Urine Bilirubin Dipstick Negative (Negative); Urine Clarity Sl. Cloudy (Clear); Urine Urobilinogen Normal (Normal)
[2024-09-04 18:18] LABS: Red Blood Cells-Urine 0-5 SEEN /hpf (0-5); Squamous Epithelial Cells - UA 0-5 SEEN /hpf (5-10); Transitional Epithelial - Ur 0-5 SEEN /hpf (0-5); White Blood Cells 10-25 SEEN /hpf (0-5)
[2024-09-04 18:19] LABS: Renal Epithelial Cells 0-5 SEEN /hpf (0-5)
[2024-09-04 18:30] VITALS: BP 131/76; PULSE 72; RESP 18; O2SAT 97
[2024-09-04] MEDS: Nitrofurantoin Macrocrystals 100 MG Capsule PO (18:56)
[2024-09-04 18:59] VITALS: BP 135/87; PULSE 72; RESP 18; TEMP 37; O2SAT 97
== END 2024-09-04 19:12 | disposition home or self-care (01) ==
PROVIDERS: Emergency Provider Emergency Medicine; PCP Internal Medicine; Visit Provider Emergency Medicine
DX: N39.0 Urinary tract infection, site not specified (principal)
CPT/HCPCS: 80048; 81001; 85025; 96361; 96374; 99284; J7030; A4216; J2405